=== PATIENT | female | born 1995 | race Caucasian/White ===

== ENCOUNTER 2018-11-28 08:58 | Emergency (ER) | payer OTHER ==
[~2018-11-28] VITALS: Ht 160 cm; Wt 54.4 kg
[~2018-11-28 08:58] MED LIST: IBUPROFEN 800800 MG PO; LAMICTAL XR100 MG; MULTIVITAMINS; ZOFRAN ODT4 MG SUBLING; ZPAK PO
[2018-11-28] MEDS ORDERED: CLEOCIN HCL150 MG PO (09:22)
[2018-11-28] MEDS ORDERED: MEDROLDOSEPACK PO (09:32)
[2018-11-28 09:50] VITALS: BP 99/69
== END 2018-11-28 09:50 | disposition home or self-care (01) ==
LOC: M.ERS 08:58
DX: L25.9 Unspecified contact dermatitis, unspecified cause (principal)

== ENCOUNTER 2019-08-04 01:24 | Emergency (ER) | payer OTHER ==
[~2019-08-04] VITALS: Ht 160 cm; Wt 54.4 kg
[~2019-08-04 01:24] MED LIST changes: +CLEOCIN HCL150 MG PO; +MEDROLDOSEPACK PO
[2019-08-04 01:52] LABS: HEMOGLOBIN 15.5 gm/dL (12.0-15.0); MCH 31.4 pg (26.0-34.0); MCHC 34.3 g/dL (28.0-37.0); MCV 91.5 fL (80.0-100.0); NUCLEATED RBCS 0 /100WBC; PLATELET COUNT* 200 thou/uL (150-400); RBC 4.92 mil/uL (4.20-5.00); RDW-CV 13.1 % (10.5-14.5); WBC 11.1 thou/uL (4.0-11.0)
[2019-08-04 02:01] LABS: CALCIUM 8.9 mg/dL (8.5-10.1); CREATININE 0.8 mg/dL (0.6-1.3); POTASSIUM 4.1 mmol/L (3.5-5.1)
[2019-08-04 02:02] LABS: URINE BILIRUBIN NEGATIVE (Negative); URINE BLOOD NEGATIVE (Negative); URINE CLARITY CLEAR; URINE COLOR YELLOW; URINE GLUCOSE-RANDOM NEGATIVE (Negative); URINE KETONES 2+ (Negative); URINE LEUKOCYTES-REFLEX NEGATIVE (Negative); URINE NITRITE-REFLEX NEGATIVE (Negative); URINE PROTEIN NEGATIVE (Negative); URINE SPECIFIC GRAVITY 1.025 (1.005-1.030); URINE UROBILINOGEN 0.2 E.U./dl (0.2-1.0)
[2019-08-04 02:05] LABS: ALBUMIN 4.1 g/dL (3.4-5.0); TOTAL BILIRUBIN 0.4 mg/dL (<0.1-1.0); TOTAL PROTEIN 7.5 g/dL (6.4-8.2)
[2019-08-04] MEDS ORDERED: ZOFRAN ODT4 MG PO (02:34)
[2019-08-04 02:40] LABS: ABSOLUTE EOSINOPHILS 0.3 thou/uL (0.0-0.7); ABSOLUTE MONOCYTES 0.3 thou/uL (0.0-1.2); ABSOLUTE NEUTROPHILS 9.4 thou/uL (1.6-8.1); ANISOCYTOSIS Occasional; PLATELET ESTIMATE ADEQUATE; TOXIC GRANULATION 1+
[2019-08-04 02:53] VITALS: BP 115/66
== END 2019-08-04 02:53 | disposition home or self-care (01) ==
LOC: M.ERS 01:24
PROVIDERS: Emergency Medicine
DX: K52.9 Noninfective gastroenteritis and colitis, unspecified (principal)